=== PATIENT | male | born 1970 | race Caucasian/White ===

== ENCOUNTER 2021-02-21 09:33 | Outpatient (CLI) | payer OTHER, SELFPAY ==
[2021-02-21 09:55] VITALS: BP 121/89; PULSE 78; RESP 16; TEMP 36.6; O2SAT 95; BMI 30.9
[2021-02-21 10:26] VITALS: BP 111/75; BP 120/86; PULSE 74; RESP 16; O2SAT 94
[2021-02-21 11:26] VITALS: BP 120/86; PULSE 73; RESP 18; TEMP 36.7; O2SAT 96
--- NOTE | 2021-02-27 07:57 | PC.SOCIAL ---
antibody infusion follow up call patient reports he is doing well, no symptoms at this time.
== END 2021-02-21 09:34 | disposition home or self-care (01) ==
LOC: OPS 09:34
PROVIDERS: PCP Nurse Practitioner Family; Visit Provider Nurse Practitioner Family
DX: U07.1 COVID-19 (principal); J44.9 Chronic obstructive pulmonary disease, unspecified; Z86.19 Personal history of other infectious and parasitic diseases
CPT/HCPCS: 96365